=== PATIENT | male | born 1950 | race Caucasian/White ===

== ENCOUNTER 2017-06-02 09:19 | Day surgery (SDC) | payer OTHER ==
[2017-06-02 10:08] VITALS: BMI 34.5
[2017-06-02] MEDS ORDERED: Lactated Ringer's 500 ML IV ONE (10:55)
[2017-06-02] MEDS ORDERED: Midazolam 2 MG/2 ML VIAL ONE (11:17)
[2017-06-02] MEDS ORDERED: Propofol 10 mg/ml Inj (20 ML) ONE ×2 (11:18→11:28)
[2017-06-02 12:20] VITALS: TEMP 98.4
[2017-06-02 12:47] VITALS: PULSE 55; RESP 13
[2017-06-02 12:48] VITALS: BP 140/73; O2SAT 100
== END 2017-06-02 13:10 | disposition home or self-care (01) ==
LOC: C.ENDO 09:19
PROVIDERS: ATTEND Internal Medicine Gastroenterology
DX: Z12.11 Encounter for screening for malignant neoplasm of colon (principal); D12.2 Benign neoplasm of ascending colon; K64.0 First degree hemorrhoids; I10 Essential (primary) hypertension; E78.5 Hyperlipidemia, unspecified
CPT/HCPCS: 45385; 88305; J2250; J2704; J7120